=== PATIENT | female | born 1960 | race Caucasian/White ===

== ENCOUNTER 2018-08-15 17:55 | Emergency (ER) | payer OTHER ==
[~2018-08-15] VITALS: Ht 162.6 cm; Wt 81.7 kg
[2018-08-15] MEDS ORDERED: FOSAMAX 70 MG T70 MG PO (18:12)
[2018-08-15] MEDS ORDERED: EFFEXOR 5050 MG/1 T1 PO (18:12)
[2018-08-15] MEDS ORDERED: SYNTHROID100 MC1 PO (18:12)
[2018-08-15] MEDS ORDERED: HYDROCHLOROTH12.5 M1 PO (18:12)
[2018-08-15] MEDS ORDERED: CLEOCIN HCL150 MG PO (18:12)
[2018-08-15 19:03] LABS: ABSOLUTE BASOPHILS 0.1 thou/uL (0.0-0.2); ABSOLUTE EOSINOPHILS 0.2 thou/uL (0.0-0.7); ABSOLUTE LYMPHOCYTES 2.5 thou/uL (0.8-5.3); ABSOLUTE MONOCYTES 0.4 thou/uL (0.0-1.2); ABSOLUTE NEUTROPHILS 3.7 thou/uL (1.6-8.1); BASOPHILS 0.8 %; HEMATOCRIT 36.2 % (37.0-47.0); HEMOGLOBIN 12.7 gm/dL (12.0-15.0); LYMPHOCYTES 35.9 %; MCH 29.3 pg (26.0-34.0); MCHC 35.1 g/dL (28.0-37.0); MCV 83.4 fL (80.0-100.0); MONOCYTES 5.5 %; MPV 8.6 fl. (7.2-11.1); NUCLEATED RBCS 0 /100WBC; PLATELET COUNT* 268 thou/uL (150-400); POLYS 54.8 %; RBC 4.34 mil/uL (4.20-5.00); RDW-CV 13.8 % (10.5-14.5); WBC 6.8 thou/uL (4.0-11.0)
[2018-08-15 19:07] LABS: CALCIUM 9.1 mg/dL (8.5-10.1); CREATININE 0.9 mg/dL (0.6-1.3)
[2018-08-15 19:14] LABS: ALBUMIN 3.8 g/dL (3.4-5.0); TOTAL BILIRUBIN 0.5 mg/dL (<0.1-1.0); TOTAL PROTEIN 7.1 g/dL (6.4-8.2)
[2018-08-15 19:17] LABS: POTASSIUM 2.8 mmol/L (3.5-5.1)
[2018-08-15] MEDS ORDERED: CLINDAMYCIN HC300 MG PO (19:44)
[2018-08-15] MEDS ORDERED: NORCO 5-325 TA1 EACH PO (19:46)
[2018-08-15 20:20] VITALS: BP 113/72
== END 2018-08-15 20:20 | disposition home or self-care (01) ==
LOC: M.ERS 17:55
PROVIDERS: Nurse Practitioner Family
DX: L03.012 Cellulitis of left finger (principal); E87.6 Hypokalemia; Z88.2 Allergy status to sulfonamides; M19.90 Unspecified osteoarthritis, unspecified site; Z90.710 Acquired absence of both cervix and uterus

== ENCOUNTER 2019-06-15 18:03 | Emergency (ER) | payer OTHER ==
[~2019-06-15] VITALS: Ht 162.6 cm; Wt 79.4 kg
[~2019-06-15 18:03] MED LIST: CLEOCIN HCL150 MG PO; CLINDAMYCIN HC300 MG PO; EFFEXOR 5050 MG/1 T1 PO; FOSAMAX 70 MG T70 MG PO; HYDROCHLOROTH12.5 M1 PO; NORCO 5-325 TA1 EACH PO; SYNTHROID100 MC1 PO
[2019-06-15] MEDS ORDERED: PROTONIX 20 MG20 MG PO (18:23)
[2019-06-15 18:35] LABS: URINE BILIRUBIN NEGATIVE (Negative); URINE BLOOD 3+ (Negative); URINE CLARITY CLEAR; URINE COLOR YELLOW; URINE GLUCOSE-RANDOM NEGATIVE (Negative); URINE KETONES NEGATIVE (Negative); URINE LEUKOCYTES-REFLEX 1+ (Negative); URINE NITRITE-REFLEX NEGATIVE (Negative); URINE PROTEIN NEGATIVE (Negative); URINE UROBILINOGEN 0.2 E.U./dl (0.2-1.0)
[2019-06-15 18:46] LABS: HYALINE CASTS 4-10 Moderate /LPF (None Seen); MUCUS None Seen strn/LPF (None Seen); SQUAMOUS >10 Many /LPF (0-3)
[2019-06-15 18:48] LABS: BACTERIA-REFLEX 1-9 Few /HPF (None Seen); CRYSTALS None Seen /LPF (None Seen); URINE WBC-REFLEX >25 Many /HPF (0-5)
[2019-06-15 19:03] LABS: ABSOLUTE BASOPHILS 0.1 thou/uL (0.0-0.2); ABSOLUTE EOSINOPHILS 0.2 thou/uL (0.0-0.7); ABSOLUTE LYMPHOCYTES 2.7 thou/uL (0.8-5.3); ABSOLUTE MONOCYTES 0.5 thou/uL (0.0-1.2); ABSOLUTE NEUTROPHILS 4.6 thou/uL (1.6-8.1); BASOPHILS 1.2 %; EOSINOPHILS 2.2 %; HEMATOCRIT 35.7 % (37.0-47.0); HEMOGLOBIN 12.8 gm/dL (12.0-15.0); LYMPHOCYTES 33.7 %; MCH 29.1 pg (26.0-34.0); MCV 80.9 fL (80.0-100.0); MONOCYTES 5.7 %; MPV 8.4 fl. (7.2-11.1); NUCLEATED RBCS 0 /100WBC; PLATELET COUNT* 307 thou/uL (150-400); POLYS 57.2 %; RBC 4.41 mil/uL (4.20-5.00)
[2019-06-15 19:16] LABS: CALCIUM 9.3 mg/dL (8.5-10.1)
[2019-06-15 19:20] LABS: ALBUMIN 3.8 g/dL (3.4-5.0); TOTAL BILIRUBIN 0.4 mg/dL (<0.1-1.0); TOTAL PROTEIN 7.4 g/dL (6.4-8.2)
[2019-06-15 19:21] LABS: POTASSIUM 2.5 mmol/L (3.5-5.1)
[2019-06-15] MEDS ORDERED: IBUPROFEN 800800 M1 PO (20:34)
[2019-06-15] MEDS ORDERED: NORCO 5-325 TA1 EAC1 PO (20:34)
[2019-06-15] MEDS ORDERED: AUGMENTIN 875-1 EACH PO (20:34)
[2019-06-15 20:57] VITALS: BP 128/73
== END 2019-06-15 20:59 | disposition home or self-care (01) ==
LOC: M.ERS 18:03
PROVIDERS: Nurse Practitioner Family
DX: N20.0 Calculus of kidney (principal); E87.6 Hypokalemia; N28.89 Other specified disorders of kidney and ureter; E03.9 Hypothyroidism, unspecified; M19.90 Unspecified osteoarthritis, unspecified site; Z90.710 Acquired absence of both cervix and uterus; Z88.2 Allergy status to sulfonamides